=== PATIENT | female | born 1990 | race Caucasian/White ===

== ENCOUNTER 2019-11-22 11:33 | Inpatient (IN) | payer OTHER, SELFPAY ==
--- NOTE | ~2019-11-22 | XR_ITS ---
EXAMINATION: XR cholangiogram surg 1st inj DATE: 11/23/2019 12:10 INDICATION: Intraoperative evaluation during laparoscopic cholecystectomy TECHNIQUE: Multiple fluoroscopic images of the right upper quadrant were obtained during intraoperati ve cholangiography. The amount of fluoroscopy time used during this procedure was 0.7 minutes. COMPARISON: None. FINDINGS: Cannulation of the cystic duct demonstrates relation the common bile duct prominent to a li efraín obstructing stone at the ampulla where there is a meniscus sign and only a trace amount of contr ast extending into the duodenum along the periphery of the ovoid filling defect. No mucosal irregular ities or strictures along the common bile duct. A small amount of contrast was seen within the common bile duct which appears held in a couple for substance. There are couple surgical clips in the regio n of the proximal cystic duct. Contrast extends into the central intrahepatic biliary tree which also appears normal. IMPRESSION: 1. Dilation of the common bile duct proximal to a likely obstructing stone at the ampulla. Dr. Cortés i n the OR was notified of these findings at the time of imaging. Reviewed, dictated and finalized at location A. IMPRESSION: 1. Dilation of the common bile duct proximal to a likely obstructing stone at t he ampulla. Dr. Cortés in the OR was notified of these findings at the time of im aging.
--- NOTE | ~2019-11-22 | CT_ITS ---
EXAMINATION: CT abdomen pelvis w con DATE: 11/22/2019 13:28 INDICATION: Right upper quadrant abdominal pain TECHNIQUE: Computed tomography (CT) of the abdomen and pelvis was performed with 100 cc Omnipaque int ravenous contrast. Automated exposure control and iterative reconstruction technique were employed. E xam dose: 644.26 mGy-cm total exam DLP. COMPARISON: None. FINDINGS: The lung bases are clear. Normal heart size. No pericardial or pleural effusion. The gallbladder wall is mildly thickened, measuring 3 mm. The common bile duct measures up to 9 mm, above normal limits. Mild intrahepatic bile duct prominence . Recommend correlation with serum bilirubin levels. Consider MRCP. No hepatic, splenic, pancreatic, adrenal or renal space occupying mass lesion. 8 mm cyst of left kidney. Normal appendix. No bowel obstruction or bowel wall thickening or pneumatosis. No intraperitoneal f ree air. Small fat containing umbilical hernia. Included skeletal structures appear unremarkable. IMPRESSION: Mild gallbladder wall thickening Consider ultrasound of the gallbladder Mild bile duct dilatation; consider serum bilirubin, MRCP as appropriate Reviewed, dictated and finalized at Location [facility]. Reviewed, dictated and finalized at location A.
--- NOTE | ~2019-11-22 | XR_ITS ---
EXAMINATION: XR ERCP DATE: 11/24/2019 15:30 INDICATION: Choledocholithiasis. TECHNIQUE: 4 spot fluoroscopic images of the right upper quadrant were obtained during endoscopic ret rograde cholangiopancreatography (ERCP). Fluoroscopy exposure time was 204 seconds. COMPARISON: Intraoperative cholangiogram 11/23/2019 FINDINGS: The endoscope tip is in the second portion the duodenum. There is opacification of the comm on duct, which is dilated. There are surgical clips from cholecystectomy. IMPRESSION: 1. Dilated common duct. Please refer to the ERCP procedure note for additional details. Reviewed, dictated and finalized at location A.
--- NOTE | ~2019-11-22 | US_ITS ---
US right upper quadrant DATE: 11/22/2019 14:45 INDICATION: Right upper quadrant abdominal pain TECHNIQUE: Real-time imaging of the liver, pancreas, gallbladder areas COMPARISON: 11/22/2019 CT abdomen pelvis FINDINGS: Normal hepatic portal venous flow direction. No hepatic or pancreatic space-occupying mass lesion is detected. Normal hepatopedal portal venous fl ow direction. The gallbladder wall is thickened, measuring up to 4.5 mm. There are numerous filling defects with sh adowing within the gallbladder lumen as well as some probable sludge. The sonographic Angel's sign but the patient is reportedly a pain medication which renders this sign unreliable. Consider acute cholecystitis as well as chronic cholecystitis. Radionuclide hepatobiliar y scan may be helpful for more definitive diagnosis of acute cholecystitis if clinically desired. The common bile duct measures up to 8 mm, which is above normal range. Consider correlation with seru m bilirubin; MRCP may be of benefit as clinically appropriate. IMPRESSION: Cholelithiasis, gallbladder wall thickening. Acute cholecystitis is not excluded. Common bile duct dilatation, measuring up to 8 mm. Upon correlation with the 11/22/2019 CT abdomen pel vis examination, distal common bile duct obstruction secondary to choledocholithiasis is a strong con sideration. Reviewed, dictated and finalized at Location [facility]. Reviewed, dictated and finalized at location A. IMPRESSION: Cholelithiasis, gallbladder wall thickening. Acute cholecystitis is not excluded. Common bile duct dilatation, measuring up to 8 mm. Upon correlation with the CT abdomen pelvis examination, distal common bile duct obstruction seco ndary to choledocholithiasis is a strong consideration.
[2019-11-22 11:37] VITALS: BP 138/80; PULSE 122; RESP 20; TEMP 37; O2SAT 100
--- NOTE | 2019-11-22 11:38 | ED.GENADULT ---
HPI - General Adult General Chief complaint: Abdominal Pain <DON Renee - Last Filed: 11/22/19 17:08> Stated complaint: gallbladder issues <DON Renee - Last Filed: 11/22/19 17:08> Time Seen by Provider: 11/22/19 11:38 <DON Renee - Last Filed: 11/22/19 17:08> Source: patient <DON Renee - Last Filed: 11/22/19 17:08> Mode of arrival: ambulatory <DON Renee - Last Filed: 11/22/19 17:08> Limitations: no limitations <DON Renee - Last Filed: 11/22/19 17:08> History of Present Illness HPI narrative: 29-year-old female patient [facility] with complaints abdominal pain for the past 5 days. Patient states that at the end of September she started getting some gallbladder attacks however she was at that time. Patient states that she vaginally delivered her baby on 10/29 of this year. Patient states that the day after delivery she had an older gallbladder attack which they treated her with pain medicine and IV antibiotics. Patient states that she was discharged the next day and did not have any more attacks until recently about 5 days ago. Patient states when her gallbladder attacks first started in September she did have an ultrasound done which showed some sludge and gallstones. Patient states that the last 5 days she has been very nauseous. Last ate about 7 PM last night. Patient states she has been feeling very constipated. Patient states that she noticed some yellowing of her eyes and her primary doctor advised her to come to the ER for further evaluation. <DON Renee - Last Filed: 11/22/19 17:08> Related Data Home medications: Home Medications Medication Instructions Recorded Confirmed famotidine 40 mg PO DAILY 11/22/19 hydrocodone-acetaminophen 1 tablet PO DAILY 11/22/19 ondansetron 4 mg PO DAILY 11/22/19 <DON Renee - Last Filed: 11/22/19 17:08> Allergies/adverse reactions: Allergies Allergy/AdvReac Type Severity Reaction Status Date / Time No Known Allergies Allergy Verified 11/22/19 11:44 <DON Renee - Last Filed: 11/22/19 17:08> Review of Systems Review of Systems: Narrative: CONSTITUTIONAL: Denies fever, chills, or sweats. EYES: Denies visual changes, redness, or discharge. ENT: Denies rhinorrhea, congestion, sore throat, or otalgia. CARDIOVASCULAR: Positive right-sided chest pain, denies palpitations, or edema. RESPIRATORY: Denies cough or dyspnea. GASTROINTESTINAL positive abdominal pain, nausea, vomiting, denies diarrhea. Positive constipation GENITOURINARY: Denies dysuria or hematuria. SKIN: Denies rash or itching. MUSCULOSKELETAL: Denies back pain, joint pain, or myalgia. NEUROLOGIC: Denies headache, numbness, or weakness. PSYCHIATRIC: Denies anxiety or depression. <DON Renee - Last Filed: 11/22/19 17:08> PMFSH Family History Family History: Family History Grandparent Family history of hypercholesterolemia Hypertension Family history of throat cancer Mother Family history of blood dyscrasia Hypertension Father Hypertension Family history of type 2 diabetes mellitus <DON Renee - Last Filed: 11/22/19 17:08> Social History Social History: Social History Smoking status: Never smoker Alcohol intake: never Gender identity (if verbalized by the patient): Female <DON Renee - Last Filed: 11/22/19 17:08> Comments At the time of my signature I agree with nursing past medical history, surgical, social, and family history. There is no relevant family history pertinent to the presenting complaint. <DON Renee - Last Filed: 11/22/19 17:08> Exam Narrative: Exam Narrative: GENERAL: ill-appearing, well-nourished, and in no acute distress. HEAD: Normocephalic, atraumatic
--- NOTE | 2019-11-22 11:48 | ECG_ITS ---
Measurements Intervals [place] Rate: 96 P: 60 LA: 143 QRS: 66 QRSD: 86 T: 22 QT: 338 QTc: 427 Interpretive Statements SINUS RHYTHM WITH SINUS ARRHYTHMIA NONSPECIFIC ST & T-WAVE ABNORMALITY- INFERIOR LEADS BASELINE ARTIFACT- II, III, AVF BORDERLINE ECG Electronically Signed On 11-22-2019 13:42:31 CDT by Moose Fernandes D.O.
[2019-11-22] MEDS: SODIUM CHLORIDE 0.9% IV 1,000 ML 999 ML IV CONT ×2 (12:14→17:07)
[2019-11-22] MEDS: MORPHINE SULFATE 4 MG/ML INJ IV PUSH ×2 (12:15→17:08)
[2019-11-22] MEDS: ONDANSETRON INJ 4 MG/2 ML VIAL IV PUSH ×2 (12:15→17:08)
[2019-11-22 12:16] LABS: Basophils Percent Auto 0.3 % (0.2-1.2); Eosinophils Absolute Auto 0.1 K/mm3 (0-0.3); Eosinophils Percent Auto 2.1 % (0-4.4); Hematocrit 40.5 % (37.0-47.0); Hemoglobin 12.8 g/dL (12.0-15.0); Immature Granulocyte Absolute 0.02 K/mm3 (0.00-0.031); Immature Granulocyte Percent A 0.3 % (0-0.5); Lymphocytes Absolute Auto 1.53 K/mm3 (0.9-3.2); Lymphocytes Percent Auto 25.2 % (18.3-44.2); Mean Corpuscular HGB Conc 31.6 g/dl (32-36); Mean Corpuscular Hemoglobin 25.6 pg (26-34); Mean Platelet Volume 11.7 fl (7.4-10.4); Monocytes Absolute Auto 0.4 K/mm3 (0.1-0.6); Monocytes Percent Auto 6.6 % (2.6-8.5); Neutrophils Percent Auto 65.5 % (45.5-73.1); Platelet Count Result 325 k/mm3 (150-375); Red Cell Distribution Width 15.5 % (11.5-14.5); White Blood Count 6.1 K/mm3 (4.5-10.0)
[2019-11-22 12:19] LABS: Add Urine Microscopic? YES; Appearance Urine Clear (Clear); Bacteria Urine Trace /hpf; Bilirubin Urine 2+ (Negative); Blood Urine 2+ (Negative); Color Urine Amber (Yellow); Glucose Urine UA Negative (Negative); Ketones Urine Trace mg/dL (Negative); Leukocyte Esterase Ur 1+ LEU/UL (Negative); Mucus Urine Few /lpf; Nitrate Urine Negative (Negative); Protein Urine Negative (Negative); RBC Urine 21-50 /hpf (0-2); Specific Grav Ur 1.017 (1.001-1.035); Squamous Epithelial Cell Urine Occasional /hpf (Few); WBC Urine 16-20 /hpf
[2019-11-22 12:26] LABS: Lactic Acid Reflex 0.9 mmol/L (0.7-2.1)
[2019-11-22 12:27] LABS: Alanine Aminotransferase 374 U/L (4-35); Albumin Level 4.6 g/dL (3.5-5.1); Alkaline Phosphatase 329 U/L (38-126); Aspartate Amino Transferase 206 U/L (14-36); Bilirubin Direct 2.6 mg/dL (0-0.3); Bilirubin,Total 5.5 mg/dL (0.2-1.3); Blood Urea Nitrogen 8 mg/dL (7-17); Calcium 9.1 mg/dL (8.4-10.2); Carbon Dioxide 25 mmol/L (22-30); Chloride 104 mmol/L (98-107); Estimated CRCL calculation 76 ml/min; Estimated Glomerular Filt Rate > 60; Glucose 116 mg/dL (65-105); INR 0.9; Lipase 53 U/L (23-300); Potassium 3.7 mmol/L (3.4-5.0); Prothrombin Time 12.3 Seconds (11.1-14.7); Sodium 140 mmol/L (137-145)
[2019-11-22 12:28] LABS: Partial Thromboplastin Time 26.5 SECONDS (22.3-36.8)
[2019-11-22 13:50] VITALS: BP 102/90; PULSE 81; RESP 20; O2SAT 100
[2019-11-22 15:00] VITALS: PULSE 86; RESP 20; O2SAT 100
[2019-11-22 16:26] VITALS: BP 129/83; PULSE 63; RESP 20; O2SAT 100
--- NOTE | 2019-11-22 18:14 | PM.IMHP ---
H&P: HPI History of Present Illness Chief complaint: acute cholecystitis Narrative: Tish Enrique is a 29 year old female who had a baby in [place] on October 29. This was a vaginal delivery although her 1st baby was a . Prior to the end of her she had episodes of epigastric abdominal pain that were severe. She reports she had an ultrasound that showed gallstones. Particularly on October 18 she had severe epigastric abdominal pain from gallbladder attack. After her delivery, she had done pretty well but Wednesday night, 4 days ago, she started having severe epigastric abdominal pain again. This pain would come and was extremely severe but then would go away for several hours. She is eaten very little. She has had nausea with this and occasional vomiting. She has been avoiding fatty food. Her mom notice that she was somewhat yellow in appearance. She was advised to go to the emergency room today which she did. In the emergency room she was noted to have severe epigastric pain and tenderness. Her liver enzymes were elevated with a bilirubin of 5.5. Her lipase was normal. White blood cell count was normal. She 1st had a CT scan of the abdomen and pelvis which showed evidence of cholecystitis. A subsequent ultrasound was done which showed gallstones and a thickened gallbladder wall with evidence of acute cholecystitis. Common bile duct diameter was 8 mm. She has continued to require IV analgesics to control her pain. She is admitted now with acute cholecystitis with gallstones. Review of Systems Review of Systems: All systems reviewed & are unremarkable except as noted in HPI and below Constitutional: Constitutional: Denies headache(s) Cardiovascular: Cardiovascular: Denies chest pain and Denies dyspnea Respiratory: Respiratory: Denies cough and Denies dyspnea Gastrointestinal: Gastrointestinal: Reports as per HPI Integumentary/Breasts: Skin/Breast: Reports breast swelling (She is currently breast-feeding.) Neurologic: Denies confusion and Denies headache(s) [facility] Family History Family History (Updated 11/22/19 @ 18:37 by Eduard Cortés MD) Grandparent Family history of hypercholesterolemia Hypertension Family history of throat cancer Mother Family history of blood dyscrasia Hypertension Chronic cholecystitis due to cholelithiasis with choledocholithiasis Father Hypertension Family history of type 2 diabetes mellitus FH: gallbladder disease Sibling FH: gallbladder disease Social History Social History Smoking status: Never smoker Alcohol intake: never Gender identity (if verbalized by the patient): Female Meds Home Medications and Allergies Home Medications Medication Instructions Recorded Confirmed Type famotidine 40 mg PO DAILY 11/22/19 History hydrocodone-acetaminophen 1 tablet PO DAILY 11/22/19 History ondansetron 4 mg PO DAILY 11/22/19 History Allergies Allergy/AdvReac Type Severity Reaction Status Date / Time No Known Allergies Allergy Verified 11/22/19 11:44 Vital Signs Vital Signs - 24 hr 11/22/19 11:37 11/22/19 13:50 11/22/19 15:00 Temperature 37.0 C Pulse Rate 122 H 81 86 Respiratory Rate 20 20 20 Blood Pressure 138/80 102/90 Pulse Oximetry 100 100 100 11/22/19 16:26 Temperature Pulse Rate 63 Respiratory Rate 20 Blood Pressure 129/83 Pulse Oximetry 100 Exam Const: General: cooperative, comfortable, no acute distress, alert, awake, tired appearing and other (Some appearance of jaundice); No confusion Orientation/consciousness: No confusion HENMT: Head: normocephalic, atraumatic, no contusions and no scalp lesions Ears: external ears normal General nose exam: Normal external nose present Face and sinus: face symmetric and dry mucous membranes Mouth: Yes Normal oral and palatal mucosa present and Yes tongue normal Throat: posterior oropharynx normal Eyes: Conjunct
[2019-11-22 18:45] VITALS: BP 115/65; PULSE 72; RESP 16; TEMP 36.5; O2SAT 100
--- NOTE | 2019-11-22 18:45 | ADMGEN ---
This patient, Tish Enrique, was admitted to [address] [facility] Surg Room 300-01. Patient/family oriented to hospital policies and general routines including ID bracelet, bed and alarms, visiting hours, pain management, procedures, bathroom and other care routines, personal items, smoking policy, room service/diet, and visiting hours. Valuables list has been completed. Information on how to activate the Rapid Response Team has been discussed. Patient/Family are encouraged to report perceived risks to care and to ask questions if they do not understand what they are told or what they should do.
[2019-11-22 18:49] VITALS: BMI 33.6
[2019-11-22] MEDS: LACTATED RINGERS 1,000 ML 100 ML IV CONT (19:38)
[2019-11-22] MEDS: MORPHINE SULFATE 2 MG/ML INJ IV PUSH (20:32)
[2019-11-22] MEDS: IBUPROFEN IV 800 MG/200 ML 800 MG/200 ML BAG 400 MG IVPB (21:04)
[2019-11-22] MEDS: ENOXAPARIN 30 MG/0.3 ML SYRINGE SUB-Q (21:05)
[2019-11-22] MEDS: FAMOTIDINE 20 MG/2 ML VIAL IV PUSH (21:05)
[2019-11-23] VITALS (14 sets, daily range): BP systolic 114–144; BP diastolic 62–88; PULSE 58–96; RESP 12–20; TEMP 36.1–36.9; O2SAT 97–100
[2019-11-23] MEDS: MORPHINE SULFATE 2 MG/ML INJ IV PUSH ×5 (00:50→20:36)
[2019-11-23] MEDS: IBUPROFEN IV 800 MG/200 ML 800 MG/200 ML BAG 400 MG IVPB ×2 (01:58→16:22)
[2019-11-23 06:30] LABS: Basophils Percent Auto 0.2 % (0.2-1.2); Eosinophils Absolute Auto 0.2 K/mm3 (0-0.3); Eosinophils Percent Auto 3.9 % (0-4.4); Hematocrit 35.4 % (37.0-47.0); Hemoglobin 10.9 g/dL (12.0-15.0); Immature Granulocyte Absolute 0.01 K/mm3 (0.00-0.031); Immature Granulocyte Percent A 0.2 % (0-0.5); Lymphocytes Absolute Auto 2.03 K/mm3 (0.9-3.2); Lymphocytes Percent Auto 34.2 % (18.3-44.2); Mean Corpuscular HGB Conc 30.8 g/dl (32-36); Mean Corpuscular Hemoglobin 24.9 pg (26-34); Mean Platelet Volume 11.1 fl (7.4-10.4); Monocytes Absolute Auto 0.4 K/mm3 (0.1-0.6); Monocytes Percent Auto 6.7 % (2.6-8.5); Neutrophils Absolute Auto 3.3 K/mm3 (1.3-6.7); Neutrophils Percent Auto 54.8 % (45.5-73.1); Platelet Count Result 250 k/mm3 (150-375); Red Blood Count 4.37 M/mm3 (4.2-5.4); Red Cell Distribution Width 15.4 % (11.5-14.5); White Blood Count 5.9 K/mm3 (4.5-10.0)
[2019-11-23 06:55] LABS: Alanine Aminotransferase 250 U/L (4-35); Albumin Level 3.4 g/dL (3.5-5.1); Alkaline Phosphatase 244 U/L (38-126); Aspartate Amino Transferase 119 U/L (14-36); Bilirubin,Total 3.1 mg/dL (0.2-1.3); Blood Urea Nitrogen 5 mg/dL (7-17); Calcium 8.6 mg/dL (8.4-10.2); Carbon Dioxide 22 mmol/L (22-30); Chloride 108 mmol/L (98-107); Estimated CRCL calculation 76 ml/min; Estimated Glomerular Filt Rate > 60; Glucose 81 mg/dL (65-105); Lipase 30 U/L (23-300); Potassium 3.6 mmol/L (3.4-5.0); Sodium 139 mmol/L (137-145)
[2019-11-23] MEDS: LACTATED RINGERS 1,000 ML 100 ML IV CONT (08:14)
[2019-11-23] MEDS: CHLORHEXIDINE GLUCONATE 4% SOL 120 ML BTL 1 APPLIC TOPICAL (08:16)
[2019-11-23] MEDS: LACTATED RINGERS 1,000 ML 30 ML IV CONT ×2 (09:50→12:06)
--- NOTE | 2019-11-23 10:21 | WPDANESEPPF ---
Anes - Initial Pre Proc Eval Procedure: Operation Date: 11/23/19 10:30 Proposed Procedures p Laparoscopic Cholecystectomy With Intraoperative Cholangiograms - Eduard Cortés MD Date/Time: 11/23/19 10:21 Surgeon: Eduard Cortés MD Pre Op Diagnosis: acute cholecystitis Patient Data Age: 29 Gender: F Height: 5 ft Weight: 78.2 kg Last Vital Signs Temp 36.6 C 11/23/19 05:20 Pulse 61 11/23/19 05:20 Resp 12 11/23/19 05:20 BP 136/73 11/23/19 05:20 Pulse Ox 100 11/23/19 05:20 Allergies Allergy/AdvReac Type Severity Reaction Status Date / Time No Known Allergies Allergy Verified 11/22/19 11:44 Home Medications Medication Instructions Recorded Confirmed Type famotidine 40 mg PO DAILY 11/22/19 11/22/19 History hydrocodone-acetaminophen 1 tablet PO DAILY 11/22/19 11/22/19 History ondansetron 4 mg PO DAILY 11/22/19 11/22/19 History Laboratory Tests 11/22/19 11/22/19 11/22/19 12:07 12:07 12:07 WBC 6.1 K/mm3 K/mm3 (4.5-10.0) RBC 5.00 M/mm3 M/mm3 (4.2-5.4) Hgb 12.8 g/dL g/dL (12.0-15.0) Hct 40.5 % % (37.0-47.0) MCV 81.0 fl fl (80-100) MCH 25.6 pg L pg (26-34) MCHC 31.6 g/dl L g/dl (32-36) RDW 15.5 % H % (11.5-14.5) Plt Count 325 k/mm3 k/mm3 (150-375) MPV 11.7 fl H fl (7.4-10.4) Immature Gran % (Auto) 0.3 % % (0-0.5) Neut % (Auto) 65.5 % % (45.5-73.1) Lymph % (Auto) 25.2 % % (18.3-44.2) [place] % (Auto) 6.6 % % (2.6-8.5) Eos % (Auto) 2.1 % % (0-4.4) Baso % (Auto) 0.3 % % (0.2-1.2) Lymph # (Auto) 1.53 K/mm3 K/mm3 (0.9-3.2) [place] # (Auto) 0.4 K/mm3 K/mm3 (0.1-0.6) Eos # (Auto) 0.1 K/mm3 K/mm3 (0-0.3) Baso # (Auto) 0.0 K/mm3 K/mm3 (0.0-0.1) Abs Immat Gran (auto) 0.02 K/mm3 K/mm3 (0.00-0.031) Absolute Neuts (auto) 4.0 K/mm3 K/mm3 (1.3-6.7) Absolute Nucleated RBC 0.0 K/mm3 K/mm3 (0.0-0.012) Nucleated RBC % 0.0 % % (0.0-0.2) PT 12.3 Seconds Seconds (11.1-14.7) INR 0.9 APTT 26.5 SECONDS SECONDS (22.3-36.8) Sodium 140 mmol/L mmol/L (137-145) Potassium 3.7 mmol/L mmol/L (3.4-5.0) Chloride 104 mmol/L mmol/L (98-107) Carbon Dioxide 25 mmol/L mmol/L (22-30) BUN 8 mg/dL mg/dL (7-17) Creatinine 0.90 mg/dL mg/dL (0.7-1.0) Estim Creat Clear Calc 76 ml/min ml/min Estimated GFR > 60 (59 - ) Glucose 116 mg/dL H mg/dL (65-105) Lactic Acid Calcium 9.1 mg/dL mg/dL (8.4-10.2) Total Bilirubin 5.5 mg/dL H mg/dL (0.2-1.3) Direct Bilirubin 2.6 mg/dL H mg/dL (0-0.3) AST 206 U/L H U/L (14-36) ALT 374 U/L H U/L (4-35) Alkaline Phosphatase 329 U/L H U/L (38-126) Total Protein 8.0 g/dL g/dL (6.3-8.2) Albumin 4.6 g/dL g/dL (3.5-5.1) Lipase 53 U/L U/L (23-300) Urine Color Urine Appearance Urine pH Ur Specific [place] Urine Protein Urine Glucose (UA) Urine Ketones Ur Blood (Man) Urine Nitrate Urine Bilirubin Urine Urobilinogen Leukocyte Esterase Rfl Urine RBC Urine WBC Ur Squamous Epith Cells Urine Bacteria Urine Mucus Blood Type Antibody Screen Antibody Identification Antigen Identification MARCK, IgG Interpret MARCK, Poly Interpret MARCK, Complement Interp Enhanced Crossmatch 11/22/19 11/22/19 11/23/19 12:07 12:07 05:58 WBC 5.9 K/mm3 K/mm3 (4.5-10.0) RBC 4.37 M/mm3
[2019-11-23] MEDS: BUPIVACAINE/EPINEPHRINE 0.5% 30 ML VIAL INFILTRATE (11:21)
[2019-11-23] MEDS: ONDANSETRON INJ 4 MG/2 ML VIAL IV PUSH ×3 (12:30→20:35)
--- NOTE | 2019-11-23 13:34 | PC.NURSE ---
Patient to OR at 0920.
--- NOTE | 2019-11-23 13:36 | PC.NURSE ---
Patient returned to 3 med/surg floor from PACU at 1335.
[2019-11-23] MEDS: FAMOTIDINE 20 MG/2 ML VIAL IV PUSH ×2 (14:15→20:35)
[2019-11-23] MEDS: ENOXAPARIN 30 MG/0.3 ML SYRINGE SUB-Q ×2 (14:16→20:36)
--- NOTE | 2019-11-23 16:16 | WPDGICN ---
Assessment and Plan Assessment and plan (1) Choledocholithiasis with acute cholecystitis: Code(s): K80.42 - Calculus of bile duct with acute cholecystitis without obstruction Status: Acute Assessment and Plan: GB removed today but noted stone in bile duct will proceed with ERCP tomorrow, discussed with patient and mother will give indomethacin supp to prevent post ercp pancreatitis (2) Calculus of gallbladder with acute and chronic cholecystitis with obstruction: Code(s): K80.13 - Calculus of gallbladder with acute and chronic cholecystitis with obstruction Status: Acute Assessment and Plan: she is on iv zosyn (3) Elevated liver enzymes: Code(s): R74.8 - Abnormal levels of other serum enzymes Status: Acute Assessment and Plan: monitor liver enzymes, continue with medical care (4) Lactating mother: Code(s): Z39.1 - Encounter for care and examination of lactating mother Status: Chronic GI Consult Note Consult date/time: 11/23/19 16:16 Reason for consult: jaundice, choledocholithiasis HPI: Tish Enrique is a 29 year old female who is 3 weeks after vaginal delivery. She started having ruq pain with nausea during third trimester treated medically then after delivery had severe epigastric abdominal pain again with nausea and some vomiting, lack of appetite, also noted dark urine and yellow sclerae. Finally she came to ER and found to have elevated liver enzymes with a bilirubin of 5.5. Her lipase was normal. White blood cell count was normal. CT scan of the abdomen and pelvis which showed evidence of cholecystitis. Then ultrasound showed gallstones and a thickened gallbladder wall with evidence of acute cholecystitis. Common bile duct diameter was [address] Cortés took her for lap armand, IOC showed stone in bile duct. She is recovering from surgery. Mother also had GB surgery with apparently ERCP Review of Systems Constitutional: Constitutional: Reports lethargy Eyes: Eyes: Denies blurry vision ENT: Reports Normal hearing present, Denies headache(s) and Denies neck pain Cardiovascular: Cardiovascular: Denies chest pain and Denies dyspnea Respiratory: Respiratory: Denies dyspnea Gastrointestinal: Gastrointestinal: Reports no additional gastrointestinal complaints Genitourinary: Genitourinary: Denies dysuria Comments: recent vaginal delivery Musculoskeletal: Musculoskeletal: Denies neck pain Integumentary/Breasts: Skin/Breast: Denies dry skin Neurologic: Reports Normal hearing present, Denies headache(s) and Denies weakness Psychiatric: Psychiatric: Denies anxiety Endocrine: Endocrine: Denies change in body appearance Hematologic/Lymphatic: Hematologic/Lymphatic: Denies easy bleeding Allergic/Immunologic: Allergic/Immunologic: Denies urticaria PMFSH Past Medical History Medical History (Updated 11/23/19 @ 16:23 by Neftaly Wong MD) Choledocholithiasis with acute cholecystitis Elevated liver enzymes Obesity Surgical History Surgical History (Updated 11/23/19 @ 10:22 by Cachorro Villegas MD) History of section Social History Social History Smoking status: Never smoker Alcohol intake: never Substance use: never Gender identity (if verbalized by the patient): Female Spiritual care concerns: No Meds Home Medications and Allergies Home Medications Medication Instructions Recorded Confirmed Type famotidine 40 mg PO DAILY 11/22/19 11/22/19 History hydrocodone-acetaminophen 1 tablet PO DAILY 11/22/19 11/22/19 History ondansetron 4 mg PO DAILY 11/22/19 11/22/19 History Allergies Allergy/AdvReac Type Severity Reaction Status Date / Time No Known Allergies Allergy Verified 11/22/19 11:44 Vital Signs Vital Signs - 24 hr 11/22/19 16:26 11/22/19 18:45 11/23/19 05:20 Temperature 97.7 F 97.9 F Pulse Rate 63 72 61 Respirato
[2019-11-24] VITALS (10 sets, daily range): BP systolic 108–145; BP diastolic 60–83; PULSE 53–88; RESP 14–20; TEMP 36.6–36.7; O2SAT 95–100
[2019-11-24] MEDS: MORPHINE SULFATE 2 MG/ML INJ IV PUSH ×2 (02:00→08:34)
[2019-11-24] MEDS: ONDANSETRON INJ 4 MG/2 ML VIAL IV PUSH ×3 (05:15→17:17)
[2019-11-24] MEDS: MORPHINE SULFATE 4 MG/ML INJ IV PUSH ×3 (05:15→17:50)
[2019-11-24 06:08] LABS: Basophils Percent Auto 0.3 % (0.2-1.2); Eosinophils Percent Auto 0.4 % (0-4.4); Hemoglobin 10.9 g/dL (12.0-15.0); Immature Granulocyte Absolute 0.05 K/mm3 (0.00-0.031); Immature Granulocyte Percent A 0.6 % (0-0.5); Lymphocytes Absolute Auto 2.11 K/mm3 (0.9-3.2); Mean Corpuscular HGB Conc 31.1 g/dl (32-36); Mean Corpuscular Hemoglobin 25.1 pg (26-34); Mean Corpuscular Volume 80.6 fl (80-100); Mean Platelet Volume 11.5 fl (7.4-10.4); Monocytes Absolute Auto 0.6 K/mm3 (0.1-0.6); Monocytes Percent Auto 7.4 % (2.6-8.5); Neutrophils Percent Auto 64.3 % (45.5-73.1); Platelet Count Result 280 k/mm3 (150-375); Red Blood Count 4.34 M/mm3 (4.2-5.4); Red Cell Distribution Width 15.9 % (11.5-14.5); White Blood Count 7.8 K/mm3 (4.5-10.0)
[2019-11-24 06:18] LABS: Alanine Aminotransferase 247 U/L (4-35); Albumin Level 3.5 g/dL (3.5-5.1); Alkaline Phosphatase 264 U/L (38-126); Aspartate Amino Transferase 179 U/L (14-36); Blood Urea Nitrogen 6 mg/dL (7-17); Calcium 8.5 mg/dL (8.4-10.2); Carbon Dioxide 25 mmol/L (22-30); Chloride 106 mmol/L (98-107); Estimated CRCL calculation 69 ml/min; Estimated Glomerular Filt Rate > 60; Glucose 87 mg/dL (65-105); Potassium 3.6 mmol/L (3.4-5.0); Sodium 139 mmol/L (137-145)
[2019-11-24] MEDS: FAMOTIDINE 20 MG/2 ML VIAL IV PUSH ×2 (08:11→22:39)
[2019-11-24] MEDS: ENOXAPARIN 30 MG/0.3 ML SYRINGE SUB-Q (08:11)
--- NOTE | 2019-11-24 08:57 | PM.PNGS ---
Progress Note: A&P Assessment and Plan (1) Choledocholithiasis with acute cholecystitis: Code(s): K80.42 - Calculus of bile duct with acute cholecystitis without obstruction Status: Acute Assessment and Plan: doing well after laparoscopic cholecystectomy yesterday. Patient still has signs of jaundice. Appreciate Dr. Quijano consultation. Plans are for ERCP this afternoon. If all goes well, possibly home tomorrow. (2) Lactating mother: Code(s): Z39.1 - Encounter for care and examination of lactating mother Status: Chronic Subjective Subjective Date/Time Seen: 11/24/19 08:57 Post Op day: 1 Patient reports: no new complaints, feels better, pain is less and no bowel movement Exam Const: General: comfortable, no acute distress and other ( still has signs of icterus); No confusion Orientation/consciousness: patient oriented x3 and No confusion GI: Inspection: non-distended and incision ( all incisions healing well) GI Palp: Yes Soft to palpation, Yes Tenderness to palpation present (GI), No Guarding due to palpation present (GI), No Hernia present, No Palpable mass present and No Rebound tenderness present Neuro: General: patient oriented x3, no focal motor deficits and No confusion Extrem: General: no calf tenderness and no edema Psych: Affect: normal affect Insight: Good insight present (Psych) Judgement: Good judgement present (Psych) Objective Data Vital Signs Vital Signs: Vital Signs - 24 hr 11/23/19 09:26 11/23/19 12:06 11/23/19 12:21 Temperature 36.9 C 36.2 C L Pulse Rate 96 86 89 Respiratory Rate 16 20 20 Blood Pressure 114/63 126/88 133/71 Pulse Oximetry 99 100 99 11/23/19 12:35 11/23/19 12:49 11/23/19 13:10 Temperature Pulse Rate 75 72 85 Respiratory Rate 14 15 16 Blood Pressure 132/74 132/75 136/84 Pulse Oximetry 98 97 99 11/23/19 13:49 11/23/19 14:05 11/23/19 14:35 Temperature 36.1 C L 36.4 C 36.7 C Pulse Rate 77 65 73 Respiratory Rate 17 16 16 Blood Pressure 120/62 126/70 130/74 Pulse Oximetry 98 98 98 11/23/19 16:24 11/23/19 18:00 11/23/19 21:00 Temperature 36.5 C 36.3 C L 36.6 C Pulse Rate 88 58 L 77 Respiratory Rate 16 16 16 Blood Pressure 144/88 H 119/62 143/79 H Pulse Oximetry 98 98 100 11/24/19 02:00 11/24/19 06:00 Temperature 36.6 C 36.6 C Pulse Rate 72 73 Respiratory Rate 14 16 Blood Pressure 138/69 145/75 H Pulse Oximetry 99 100 Intake/Output Intake/Output: Intake & Output 11/21/19 11/22/19 11/23/19 11/24/19 23:59 23:59 23:59 23:59 Intake Total 2300 2690 350 Output Total 1900 Balance 2300 790 350 Meds/Results Medications: Active Medications Generic Name Dose Route Start Last Admin Trade Name Freq PRN Reason Stop Dose Admin Acetaminophen 500 mg 11/22/19 18:10 Tylenol Tablet PO Q6H PRN Mild Pain (1-3) or Fever Hydrocodone Bitart/Acetaminophen 1 tab 11/23/19 19:31 [place] 5-325 Mg PO Q4H PRN Pain Rated 4-6 Hydrocodone Bitart/Acetaminophen 1 tab 11/23/19 19:31 [place] 10-325 Mg PO Q4H PRN Pain Rated 7-10 Enoxaparin Sodium 30 mg 11/22/19 21:00 11/24/19 08:11 Lovenox SUB-Q 30 mg Q12HR ELIJAH Administration Famotidine 20 mg 11/22/19 21:00 11/24/19 08:11 Pepcid Iv IV PUSH 20 mg Q12HR ELIJAH Administration Piperacillin/Tazobactam/Dextrose 3.375 gm in 50 mls @ 100 mls/hr 11/22/19 23:00 11/24/19 05:10 Zosyn 3.375 Gm/D5w 50ml Pm IVPB 100 mls/hr Q6H ELIJAH Administration Lactated Ringer's 1,000 mls @ 80 mls/hr 11/23/19 19:31 Lr - Lactated Ringers Iv IV CONT .[id number] ELIJAH Morphine Sulfate 2 mg 11/22/19 18:10 11/24/19 08:34 Morphine Sulfate Inj IV PUSH 2 mg Q2H PRN Administration Pain Rated 4-6 Morphine Sulfate 4 mg 11/22/19 18:10 11/24/19 05:15 Morphine Sulfate Inj IV PUSH 4 mg Q2H PRN Administration Pain Rated 7-10 Naloxone HCl 0.1 mg 11/22/19 18:10 Narcan IV PUSH Q2M PRN Opi
[2019-11-24] MEDS: LACTATED RINGERS 1,000 ML 80 ML IV CONT ×2 (09:49→13:43)
--- NOTE | 2019-11-24 09:56 | P.PNAN_ITS ---
Anes - Prog Note Post-Op Date/Time: 11/24/19 09:56 Cardiovascular status: normal Respiratory status: normal Airway patency: baseline Mental status: baseline Post-Op hydration status: normal Vital Signs: Last Vital Signs Temp 97.9 F 11/24/19 06:00 Pulse 73 11/24/19 06:00 Resp 16 11/24/19 06:00 BP 145/75 H 11/24/19 06:00 Pulse Ox 100 11/24/19 06:00 I/O: Intake & Output 11/23/19 11/24/19 11/24/19 23:59 07:59 15:59 Intake Total 1040 350 Output Total 1900 Balance -860 350 Laboratory Tests 11/24/19 05:40 11/24/19 05:40 11/24/19 11/24/19 05:40 05:40 WBC 7.8 RBC 4.34 Hgb 10.9 L Hct 35.0 L MCV 80.6 MCH 25.1 L MCHC 31.1 L RDW 15.9 H Plt Count 280 MPV 11.5 H Immature Gran % (Auto) 0.6 H Neut % (Auto) 64.3 Lymph % (Auto) 27.0 [place] % (Auto) 7.4 Eos % (Auto) 0.4 Baso % (Auto) 0.3 Lymph # (Auto) 2.11 [place] # (Auto) 0.6 Eos # (Auto) 0.0 Baso # (Auto) 0.0 Abs Immat Gran (auto) 0.05 H Absolute Neuts (auto) 5.0 Absolute Nucleated RBC 0.0 Nucleated RBC % 0.0 Sodium 139 Potassium 3.6 Chloride 106 Carbon Dioxide 25 BUN 6 L Creatinine 1.00 Estim Creat Clear Calc 69 Estimated GFR > 60 Glucose 87 Calcium 8.5 Total Bilirubin 4.0 H AST 179 H ALT 247 H Alkaline Phosphatase 264 H Total Protein 6.0 L Albumin 3.5 Microbiology 11/22/19 12:07 Urine Clean Catch Urine Culture - Final Post-procedural complaints: none Patient Feedback: Patient satisfied with anesthetic care.
--- NOTE | 2019-11-24 13:24 | PC.NURSE ---
To GI Lab per erik, IV #20 left AC.
--- NOTE | 2019-11-24 13:39 | SUR.PREOP ---
pt notified of delay in procedure start time. pt verbalizes understanding.
--- NOTE | 2019-11-24 13:58 | PM.DS ---
DS: Admitting Diagnosis Admitting Diagnosis Admitting Diagnosis: Calculus of gallbladder with acute and chronic cholecystitis with obstruction DS: Discharge Diagnosis Discharge Diagnosis (1) Choledocholithiasis with acute cholecystitis: Code(s): K80.42 - Calculus of bile duct with acute cholecystitis without obstruction Status: Acute (2) Acute pancreatitis after endoscopic retrograde cholangiopancreatography (ERCP): Code(s): K91.89 - Other postprocedural complications and disorders of digestive system; K85.90 - Acute pancreatitis without necrosis or infection, unspecified Status: Acute (3) Lactating mother: Code(s): Z39.1 - Encounter for care and examination of lactating mother Status: Chronic DS: Summary Time Spent with Patient Time attestation: Total time spent providing and/or coordinating discharge services: The patient is a 29-year-old woman who had a baby by vaginal delivery October 29. She was having some pain from gallbladder disease prior to delivery. She did well but then for about the last 4 days before coming to the emergency room on November 21, she had unrelenting epigastric abdominal pain. In the emergency room she was noted to be slightly jaundiced. Her liver enzymes were elevated and her bilirubin was 5.5. An ultrasound showed gallstones with evidence of acute cholecystitis. She was admitted and started on IV antibiotics as well as analgesics. She did feel better on November 22 and her liver enzymes were somewhat improved. She underwent laparoscopic cholecystectomy by Dr. baumann. This went well. She had a a cholangiogram and this showed an obstructing distal common bile duct stone. She was seen by Dr. Quijano. She underwent ERCP on November 23. this showed no common bile duct stones but biliary papillary stenosis. Sphincterotomy was performed. Pancreatic duct was not cannulated. On November 24 the patient had nausea and worse epigastric and right upper quadrant pain. Her serum amylase was elevated at 13,000 thousand. She was diagnosis with post ERCP pancreatitis. She was kept on clear liquids on 11/24 and was better on November 25 but still a lot of tenderness and nausea. On the day of discharge November 27, 2019, her amylase was down to 457. her liver enzymes were steadily improving as well. She was much more comfortable and able to be discharged on 11/27/2019 in good condition. pathology on the gallbladder showed chronic cholecystitis with cholelithiasis. Exam Const: General: comfortable and no acute distress; No confusion Orientation/consciousness: patient oriented x3 and No confusion GI: Inspection: non-distended and incision ( All incisions healing well) GI Palp: Yes Soft to palpation, Yes Tenderness to palpation present (GI) ( minimal incisional or epigastric tenderness), No Guarding due to palpation present (GI) and No Rebound tenderness present Auscultation: normal bowel sounds Neuro: General: patient oriented x3, no focal motor deficits and No confusion Extrem: General: no calf tenderness and no edema Psych: Affect: normal affect Insight: Good insight present (Psych) Judgement: Good judgement present (Psych) DS: Data Data Completed and Pending Pending studies at discharge: Pending at discharge 11/23/19 11:23 Surgical [PTH] Routine Labs on day of discharge: Labs from last 24 hours 11/24/19 11/24/19 05:40 05:40 WBC 7.8 RBC 4.34 Hgb 10.9 L Hct 35.0 L MCV 80.6 MCH 25.1 L MCHC 31.1 L RDW 15.9 H Plt Count 280 MPV 11.5 H Immature Gran % (Auto) 0.6 H Neut % (Auto) 64.3 Lymph % (Auto) 27.0 [place] % (Auto) 7.4 Eos % (Auto) 0.4 Baso % (Auto) 0.3 Lymph # (Auto) 2.11 [place] # (Auto) 0.6 Eos # (Auto) 0.0 Baso # (Auto) 0.0 Abs Immat Gran (auto) 0.05 H Absolute Neuts (auto) 5.0 Absolute Nucleated RBC 0.0 Nucleated RBC % 0.0 Sodium 139 Potassium 3.6 Chloride 106 Carbon Dioxide 25 BUN 6 L Creatin
[2019-11-24] MEDS: INDOMETHACIN 50 MG SUPP.RECT RECTAL (14:56)
--- NOTE | 2019-11-24 15:52 | SUR.PHASEII ---
1529 ARRIVED TO RECOVERY PER STRETCHER. ORAL AIRWAY IN PLACE. O2 10 L PER MASK. HOB ELEVATED SMALL AMT. SKIN- W/D, PINK. GOOD CAP REFILL. ABD- SOFT/ROUND. TROCHAR SITES FROM LAP NANDA- D/I. VSS. 1539 PT AROUSING. ORAL AIRWAY D/C'D. RESP- UNLABORED. LUNGS- CLEAR. ABD- SOFT/ROUND. VSS. 1549 VSS. RESP- UNLABORED. SLEEPING.
--- NOTE | 2019-11-24 16:29 | SUR.PHASEII ---
1600 RESTING QUIETLY, VSS. RESP- UNLABORED. ABD- SOFT/ROUND.1615 UNCHANGED. 1628 REPORT CALLED TO FLOOR. DR CAMERON REPORTS NO NEED TO PUMP & DUMP BREAST MILK. JENELLE, 3RD FLOOR RN NOTIFIED.
[2019-11-25] MEDS: ONDANSETRON INJ 4 MG/2 ML VIAL IV PUSH ×3 (01:40→12:17)
[2019-11-25] MEDS: LACTATED RINGERS 1,000 ML 80 ML IV CONT ×2 (05:56→21:10)
[2019-11-25 06:50] VITALS: BP 137/74; PULSE 66; RESP 18; TEMP 36.9; O2SAT 98
--- NOTE | 2019-11-25 08:11 | WPDGIPROGNO ---
Progress Note: A&P Additional Plan Patient is seen covering for Dr. Quijano today. Patient alert this morning. Tolerating liquids. She does note some right upper quadrant discomfort that persists. Not very hungry today Patient is alert. Mild scleral icterus noted. Lungs are clear. Heart without murmur. Abdomen bowel sounds are present soft she reports tenderness in the right upper quadrant. ERCP findings noted. Clear sweep of the common bile duct. No stones recovered. Question of ampullary stenosis. Patient had a sphincterotomy. Impression 1. Status post lap choly. 2. Status post ERCP and sphincterotomy. 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 Now status post sphincterotomy. Plan is to advance diet as tolerated to a low-fat diet. Increase activity. Discharge when tolerating diet and minimal pain. Continue to monitor LFTs until resolved. Subjective Date/time seen: 11/25/19 08:12 Objective Data Vital Signs Vital Signs: Vital Signs - 24 hr 11/24/19 15:29 11/24/19 15:39 11/24/19 15:49 Temperature 97.8 F Pulse Rate 88 82 69 Respiratory Rate 20 20 18 Blood Pressure 111/69 109/71 124/83 Pulse Oximetry 99 99 100 11/24/19 15:59 11/24/19 16:09 11/24/19 16:19 Temperature Pulse Rate 53 L 64 62 Respiratory Rate 18 18 14 Blood Pressure 117/70 117/71 117/71 Pulse Oximetry 100 98 98 11/24/19 16:29 11/24/19 22:30 11/25/19 06:50 Temperature 98.1 F 98.5 F Pulse Rate 59 L 63 66 Respiratory Rate 14 18 18 Blood Pressure 118/80 108/60 137/74 Pulse Oximetry 98 95 98 Intake/Output Intake/Output: Intake & Output 11/22/19 11/23/19 11/24/19 11/25/19 23:59 23:59 23:59 23:59 Intake Total 2300 2690 2050 490 Output Total 1900 1000 400 Balance 2300 790 1050 90 Meds/Results Medications: Active Medications Generic Name Dose Route Start Last Admin Trade Name Freq PRN Reason Stop Dose Admin Acetaminophen 500 mg 11/22/19 18:10 Tylenol Tablet PO Q6H PRN Mild Pain (1-3) or Fever Hydrocodone Bitart/Acetaminophen 1 tab 11/23/19 19:31 [place] 5-325 Mg PO Q4H PRN Pain Rated 4-6 Hydrocodone Bitart/Acetaminophen 1 tab 11/23/19 19:31 11/25/19 05:56 [place] 10-325 Mg PO 1 tab Q4H PRN Administration Pain Rated 7-10 Famotidine 20 mg 11/22/19 21:00 11/24/19 22:39 Pepcid Iv IV PUSH 20 mg Q12HR ELIJAH Administration Piperacillin/Tazobactam/Dextrose 3.375 gm in 50 mls @ 100 mls/hr 11/22/19 23:00 11/25/19 06:26 Zosyn 3.375 Gm/D5w 50ml Pm IVPB Infused Q6H ELIJAH Infusion Lactated Ringer's 1,000 mls @ 80 mls/hr 11/23/19 19:31 11/25/19 05:56 Lr - Lactated Ringers Iv IV CONT 80 mls/hr .[id number] ELIJAH Administration Morphine Sulfate 2 mg 11/22/19 18:10 11/24/19 08:34 Morphine Sulfate Inj IV PUSH 2 mg Q2H PRN Administration Pain Rated 4-6 Morphine Sulfate 4 mg 11/22/19 18:10 11/24/19 17:50 Morphine Sulfate Inj IV PUSH 4 mg Q2H PRN Administration Pain Rated 7-10 Naloxone HCl 0.1 mg 11/22/19 18:10 Narcan IV PUSH Q2M PRN Opiate Reversal Ondansetron HCl 4 mg 11/22/19 16:48 11/25/19 05:55 Zofran Inj IV PUSH 4 mg Q4H PRN Administration Nausea Radiology Results: ITS Impressions Abdomen/Pelvis CT 11/22/19 13:31 IMPRESSION: Mild gallbladder wall thickening Consider ultrasound of the gallbladder Mild bile duct dilatation; consider serum bilirubin, MRCP as appropriate Upper Quadrant Ultrasound 11/22/19 14:45 IMPRESSION: Cholelithiasis, gallbladder wall thickening. Acute cholecystitis is not excluded. Common bile duct dilatation, measuring up to 8 mm. Upon correlation with the 11/22/2019 CT abdomen pelvis examination, distal common bile duct obstruction secondary to choledocholithiasis is a strong consideration. Cholangiogram,Operative 11/23/19 12:14 IMPRESSION: 1. Dilation of the common bile duct proximal to a likely obstructing stone at the ampulla. Dr. Cortés in t
[2019-11-25] MEDS: MORPHINE SULFATE 4 MG/ML INJ IV PUSH ×2 (08:51→21:11)
[2019-11-25] MEDS: FAMOTIDINE 20 MG/2 ML VIAL IV PUSH ×2 (08:53→21:11)
--- NOTE | 2019-11-25 08:57 | PM.PNGS ---
Progress Note: A&P Assessment and Plan (1) Choledocholithiasis with acute cholecystitis: Code(s): K80.42 - Calculus of bile duct with acute cholecystitis without obstruction Status: Acute Assessment and Plan: patient having more pain and nausea this morning. ERCP results noted. No stone found but patient did have papillary stenosis and had a sphincterotomy. Suspect she may have some pancreatitis. Will continue clear liquids and check her labs this morning. Dr. Quijano to see. Probably will need to hold up discharge today. Subjective Subjective Date/Time Seen: 11/25/19 08:57 Patient reports: still having pain ( Having more epigastric pain this morning than yesterday) and nausea Review of Systems Review of Systems: All systems reviewed & are unremarkable except as noted in HPI and below Constitutional: Constitutional: Denies headache(s) Cardiovascular: Cardiovascular: Denies chest pain and Denies dyspnea Respiratory: Respiratory: Denies cough and Denies dyspnea Gastrointestinal: Gastrointestinal: Reports as per HPI Neurologic: Denies confusion and Denies headache(s) Exam Const: General: comfortable and no acute distress; No confusion Orientation/consciousness: patient oriented x3 and No confusion GI: Inspection: incision ( healing well) GI Palp: Yes Soft to palpation, Yes Tenderness to palpation present (GI) ( epigastric), No Guarding due to palpation present (GI) and No Rebound tenderness present Auscultation: Hypoactive bowel sounds present Neuro: General: patient oriented x3, no focal motor deficits and No confusion Extrem: General: no calf tenderness and no edema Psych: Affect: normal affect Insight: Good insight present (Psych) Judgement: Good judgement present (Psych) Objective Data Vital Signs Vital Signs: Vital Signs - 24 hr 11/24/19 15:29 11/24/19 15:39 11/24/19 15:49 Temperature 36.6 C Pulse Rate 88 82 69 Respiratory Rate 20 20 18 Blood Pressure 111/69 109/71 124/83 Pulse Oximetry 99 99 100 11/24/19 15:59 11/24/19 16:09 11/24/19 16:19 Temperature Pulse Rate 53 L 64 62 Respiratory Rate 18 18 14 Blood Pressure 117/70 117/71 117/71 Pulse Oximetry 100 98 98 11/24/19 16:29 11/24/19 22:30 11/25/19 06:50 Temperature 36.7 C 36.9 C Pulse Rate 59 L 63 66 Respiratory Rate 14 18 18 Blood Pressure 118/80 108/60 137/74 Pulse Oximetry 98 95 98 Intake/Output Intake/Output: Intake & Output 11/22/19 11/23/19 11/24/19 11/25/19 23:59 23:59 23:59 23:59 Intake Total 2300 2690 2050 490 Output Total 1900 1000 400 Balance 2300 790 1050 90 Meds/Results Medications: Active Medications Generic Name Dose Route Start Last Admin Trade Name Freq PRN Reason Stop Dose Admin Acetaminophen 500 mg 11/22/19 18:10 Tylenol Tablet PO Q6H PRN Mild Pain (1-3) or Fever Hydrocodone Bitart/Acetaminophen 1 tab 11/23/19 19:31 [place] 5-325 Mg PO Q4H PRN Pain Rated 4-6 Hydrocodone Bitart/Acetaminophen 1 tab 11/23/19 19:31 11/25/19 05:56 [place] 10-325 Mg PO 1 tab Q4H PRN Administration Pain Rated 7-10 Famotidine 20 mg 11/22/19 21:00 11/25/19 08:53 Pepcid Iv IV PUSH 20 mg Q12HR ELIJAH Administration Piperacillin/Tazobactam/Dextrose 3.375 gm in 50 mls @ 100 mls/hr 11/22/19 23:00 11/25/19 06:26 Zosyn 3.375 Gm/D5w 50ml Pm IVPB Infused Q6H ELIJAH Infusion Lactated Ringer's 1,000 mls @ 80 mls/hr 11/23/19 19:31 11/25/19 05:56 Lr - Lactated Ringers Iv IV CONT 80 mls/hr .[id number] ELIJAH Administration Morphine Sulfate 2 mg 11/22/19 18:10 11/24/19 08:34 Morphine Sulfate Inj IV PUSH 2 mg Q2H PRN Administration Pain Rated 4-6 Morphine Sulfate 4 mg 11/22/19 18:10 11/25/19 08:51 Morphine Sulfate Inj IV PUSH 4 mg Q2H PRN Administration Pain Rated 7-10 Naloxone HCl 0.1 mg 11/22/19 18:10 Narcan IV PUSH Q2M PRN Opiate Reversal Ondansetron HCl 4 mg 11/22/19 16:48
[2019-11-25 09:21] LABS: Hematocrit 34.1 % (37.0-47.0); Hemoglobin 10.8 g/dL (12.0-15.0); Mean Corpuscular HGB Conc 31.7 g/dl (32-36); Mean Corpuscular Hemoglobin 25.9 pg (26-34); Mean Corpuscular Volume 81.8 fl (80-100); Platelet Count Result 248 k/mm3 (150-375); Red Blood Count 4.17 M/mm3 (4.2-5.4); Red Cell Distribution Width 16.2 % (11.5-14.5); White Blood Count 6.5 K/mm3 (4.5-10.0)
[2019-11-25 09:46] LABS: Alanine Aminotransferase 185 U/L (4-35); Albumin Level 3.5 g/dL (3.5-5.1); Alkaline Phosphatase 220 U/L (38-126); Aspartate Amino Transferase 94 U/L (14-36); Bilirubin,Total 2.2 mg/dL (0.2-1.3); Blood Urea Nitrogen 10 mg/dL (7-17); Calcium 8.3 mg/dL (8.4-10.2); Carbon Dioxide 27 mmol/L (22-30); Chloride 105 mmol/L (98-107); Estimated CRCL calculation 76 ml/min; Estimated Glomerular Filt Rate > 60; Glucose 93 mg/dL (65-105); Potassium 3.6 mmol/L (3.4-5.0); Sodium 139 mmol/L (137-145)
[2019-11-25 10:20] LABS: Lipase 13645 U/L (23-300)
[2019-11-25 14:00] VITALS: BP 133/72; PULSE 60; RESP 16; TEMP 36.5; O2SAT 96
[2019-11-25 22:00] VITALS: BP 131/71; PULSE 67; RESP 16; TEMP 36.2; O2SAT 96
[2019-11-26 06:00] VITALS: BP 141/77; PULSE 79; RESP 16; TEMP 36.3; O2SAT 98
[2019-11-26] MEDS: FAMOTIDINE 20 MG/2 ML VIAL IV PUSH (08:01)
[2019-11-26 08:12] LABS: Hematocrit 31.2 % (37.0-47.0); Mean Corpuscular HGB Conc 32.1 g/dl (32-36); Mean Corpuscular Hemoglobin 25.6 pg (26-34); Mean Corpuscular Volume 79.8 fl (80-100); Mean Platelet Volume 11.1 fl (7.4-10.4); Platelet Count Result 210 k/mm3 (150-375); Red Blood Count 3.91 M/mm3 (4.2-5.4); Red Cell Distribution Width 16.3 % (11.5-14.5); White Blood Count 4.4 K/mm3 (4.5-10.0)
[2019-11-26 08:24] LABS: Alanine Aminotransferase 149 U/L (4-35); Albumin Level 3.2 g/dL (3.5-5.1); Alkaline Phosphatase 321 U/L (38-126); Aspartate Amino Transferase 92 U/L (14-36); Bilirubin,Total 3.6 mg/dL (0.2-1.3); Blood Urea Nitrogen 7 mg/dL (7-17); Calcium 8.3 mg/dL (8.4-10.2); Carbon Dioxide 24 mmol/L (22-30); Chloride 104 mmol/L (98-107); Estimated CRCL calculation 96 ml/min; Estimated Glomerular Filt Rate > 60; Glucose 82 mg/dL (65-105); Lipase 1878 U/L (23-300); Potassium 3.5 mmol/L (3.4-5.0); Sodium 135 mmol/L (137-145)
--- NOTE | 2019-11-26 08:37 | WPDGIPROGNO ---
Progress Note: A&P Additional Plan Patient alert more comfortable this morning. She remains afebrile. HEENT exam reveals mild icterus. Lungs are clear. Heart without murmur. Abdomen is soft balling head tender in the right upper quadrant. No organomegaly noted. Labs reveal a lipase elevated. Yesterday 13,000 today 1800. Impression 1. Post ERCP pancreatitis. Pain improving slowly. Now on liquid diet will not advanced diet too quickly given the circumstances. Continue with pain control as per surgical service. 2. Status post lap choly. 3. 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 Patient had ERCP and sphincterotomy Wednesday. Continue to monitor LFTs. anticipate eventual resolution of LFTs Subjective Date/time seen: 11/26/19 08:37 Objective Data Vital Signs Vital Signs: Vital Signs - 24 hr 11/25/19 14:00 11/25/19 22:00 11/26/19 06:00 Temperature 97.7 F 97.2 F L 97.4 F L Pulse Rate 60 67 79 Respiratory Rate 16 16 16 Blood Pressure 133/72 131/71 141/77 H Pulse Oximetry 96 96 98 Intake/Output Intake/Output: Intake & Output 11/23/19 11/24/19 11/25/19 11/26/19 23:59 23:59 23:59 23:59 Intake Total 2690 2050 1740 660 Output Total 1900 4030 467 0704 Balance 790 1050 890 -540 Meds/Results Medications: Active Medications Generic Name Dose Route Start Last Admin Trade Name Freq PRN Reason Stop Dose Admin Acetaminophen 500 mg 11/22/19 18:10 Tylenol Tablet PO Q6H PRN Mild Pain (1-3) or Fever Hydrocodone Bitart/Acetaminophen 1 tab 11/23/19 19:31 [place] 5-325 Mg PO Q4H PRN Pain Rated 4-6 Hydrocodone Bitart/Acetaminophen 1 tab 11/23/19 19:31 11/26/19 05:28 [place] 10-325 Mg PO 1 tab Q4H PRN Administration Pain Rated 7-10 Famotidine 20 mg 11/22/19 21:00 11/26/19 08:01 Pepcid Iv IV PUSH 20 mg Q12HR ELIJAH Administration Piperacillin/Tazobactam/Dextrose 3.375 gm in 50 mls @ 100 mls/hr 11/22/19 23:00 11/26/19 05:58 Zosyn 3.375 Gm/D5w 50ml Pm IVPB Infused Q6H ELIJAH Infusion Lactated Ringer's 1,000 mls @ 80 mls/hr 11/23/19 19:31 11/25/19 21:10 Lr - Lactated Ringers Iv IV CONT 80 mls/hr .[id number] ELIJAH Administration Morphine Sulfate 2 mg 11/22/19 18:10 11/24/19 08:34 Morphine Sulfate Inj IV PUSH 2 mg Q2H PRN Administration Pain Rated 4-6 Morphine Sulfate 4 mg 11/22/19 18:10 11/25/19 21:11 Morphine Sulfate Inj IV PUSH 4 mg Q2H PRN Administration Pain Rated 7-10 Naloxone HCl 0.1 mg 11/22/19 18:10 Narcan IV PUSH Q2M PRN Opiate Reversal Ondansetron HCl 4 mg 11/22/19 16:48 11/25/19 12:17 Zofran Inj IV PUSH 4 mg Q4H PRN Administration Nausea Radiology Results: ITS Impressions Abdomen/Pelvis CT 11/22/19 13:31 IMPRESSION: Mild gallbladder wall thickening Consider ultrasound of the gallbladder Mild bile duct dilatation; consider serum bilirubin, MRCP as appropriate Upper Quadrant Ultrasound 11/22/19 14:45 IMPRESSION: Cholelithiasis, gallbladder wall thickening. Acute cholecystitis is not excluded. Common bile duct dilatation, measuring up to 8 mm. Upon correlation with the 11/22/2019 CT abdomen pelvis examination, distal common bile duct obstruction secondary to choledocholithiasis is a strong consideration. Cholangiogram,Operative 11/23/19 12:14 IMPRESSION: 1. Dilation of the common bile duct proximal to a likely obstructing stone at the ampulla. Dr. Cortés in the OR was notified of these findings at the time of imaging. Endo Retro Cholangiopancreatogram 11/24/19 20:28 IMPRESSION: 1. Dilated common duct. Please refer to the ERCP procedure note for additional details. Labs Labs: Laboratory Results - last 24 hr 11/25/19 11/25/19 11/26/19 09:09 09:09 08:06 WBC 6.5 4.4 L RBC 4.17 L 3.91 L Hgb 10.8 L 10.0 L Hct 34.1 L 31.2 L MCV 81.8 79.8 L MCH 25.9 L 25.6 L MCHC 31.7 L 32.1 RDW 16.2 H 16.3 H Plt Count 248 210 MPV 1
--- NOTE | 2019-11-26 11:24 | PM.PNGS ---
Progress Note: A&P Assessment and Plan (1) Acute pancreatitis after endoscopic retrograde cholangiopancreatography (ERCP): Code(s): K91.89 - Other postprocedural complications and disorders of digestive system; K85.90 - Acute pancreatitis without necrosis or infection, unspecified Status: Acute Assessment and Plan: improving but patient still nauseated, eating only fair and very tender in the epigastrium. Will advance to low-fat diet but continue hospital care for another day. Hopefully home tomorrow. (2) Choledocholithiasis with acute cholecystitis: Code(s): K80.42 - Calculus of bile duct with acute cholecystitis without obstruction Status: Acute Assessment and Plan: See above. Will stop Zosyn antibiotics. Subjective Subjective Date/Time Seen: 11/26/19 11:24 Post Op day: 3 Patient reports: feels better, still having pain, pain is less, tolerating liquids well and nausea Review of Systems Review of Systems: All systems reviewed & are unremarkable except as noted in HPI and below Constitutional: Constitutional: Denies headache(s) Cardiovascular: Cardiovascular: Denies chest pain and Denies dyspnea Respiratory: Respiratory: Denies cough and Denies dyspnea Gastrointestinal: Gastrointestinal: Reports as per HPI Neurologic: Denies confusion and Denies headache(s) Exam Const: General: comfortable and no acute distress; No confusion Orientation/consciousness: patient oriented x3 and No confusion GI: Inspection: non-distended and incision ( healing well) GI Palp: Yes Soft to palpation, Yes Tenderness to palpation present (GI) ( still very tender epigastrium and right upper quadrant), No Guarding due to palpation present (GI), No Palpable mass present and No Rebound tenderness present Auscultation: Hypoactive bowel sounds present Neuro: General: patient oriented x3, no focal motor deficits and No confusion Extrem: General: no calf tenderness and no edema Psych: Affect: normal affect Insight: Good insight present (Psych) Judgement: Good judgement present (Psych) Objective Data Vital Signs Vital Signs: Vital Signs - 24 hr 11/25/19 14:00 11/25/19 22:00 11/26/19 06:00 Temperature 36.5 C 36.2 C L 36.3 C L Pulse Rate 60 67 79 Respiratory Rate 16 16 16 Blood Pressure 133/72 131/71 141/77 H Pulse Oximetry 96 96 98 Intake/Output Intake/Output: Intake & Output 11/23/19 11/24/19 11/25/19 11/26/19 23:59 23:59 23:59 23:59 Intake Total 2690 2050 1740 690 Output Total 1900 5463 477 1544 Balance 790 1050 890 -510 Meds/Results Medications: Active Medications Generic Name Dose Route Start Last Admin Trade Name Freq PRN Reason Stop Dose Admin Acetaminophen 500 mg 11/22/19 18:10 Tylenol Tablet PO Q6H PRN Mild Pain (1-3) or Fever Hydrocodone Bitart/Acetaminophen 1 tab 11/23/19 19:31 [place] 5-325 Mg PO Q4H PRN Pain Rated 4-6 Hydrocodone Bitart/Acetaminophen 1 tab 11/23/19 19:31 11/26/19 05:28 [place] 10-325 Mg PO 1 tab Q4H PRN Administration Pain Rated 7-10 Morphine Sulfate 2 mg 11/22/19 18:10 11/24/19 08:34 Morphine Sulfate Inj IV PUSH 2 mg Q2H PRN Administration Pain Rated 4-6 Morphine Sulfate 4 mg 11/22/19 18:10 11/25/19 21:11 Morphine Sulfate Inj IV PUSH 4 mg Q2H PRN Administration Pain Rated 7-10 Naloxone HCl 0.1 mg 11/22/19 18:10 Narcan IV PUSH Q2M PRN Opiate Reversal Ondansetron HCl 4 mg 11/22/19 16:48 11/25/19 12:17 Zofran Inj IV PUSH 4 mg Q4H PRN Administration Nausea Radiology Results: ITS Impressions Abdomen/Pelvis CT 11/22/19 13:31 IMPRESSION: Mild gallbladder wall thickening Consider ultrasound of the gallbladder Mild bile duct dilatation; consider serum bilirubin, MRCP as appropriate Upper Quadrant Ultrasound 11/22/19 14:45 IMPRESSION: Cholelithiasis, gallbladder wall thickening. Acute cholecystitis is not excluded
[2019-11-26 14:00] VITALS: BP 115/66; PULSE 78; RESP 16; TEMP 36.1; O2SAT 99
[2019-11-26] MEDS: FAMOTIDINE 20 MG TABLET PO (20:17)
[2019-11-26 22:00] VITALS: BP 127/71; PULSE 78; RESP 18; TEMP 36.5; O2SAT 100
[2019-11-27 06:22] LABS: Hematocrit 33.3 % (37.0-47.0); Hemoglobin 10.6 g/dL (12.0-15.0); Mean Corpuscular HGB Conc 31.8 g/dl (32-36); Mean Corpuscular Hemoglobin 25.7 pg (26-34); Mean Corpuscular Volume 80.8 fl (80-100); Mean Platelet Volume 11.9 fl (7.4-10.4); Platelet Count Result 268 k/mm3 (150-375); Red Blood Count 4.12 M/mm3 (4.2-5.4); White Blood Count 5.8 K/mm3 (4.5-10.0)
[2019-11-27 06:36] LABS: Alanine Aminotransferase 113 U/L (4-35); Albumin Level 3.2 g/dL (3.5-5.1); Alkaline Phosphatase 294 U/L (38-126); Aspartate Amino Transferase 44 U/L (14-36); Blood Urea Nitrogen 8 mg/dL (7-17); Calcium 8.5 mg/dL (8.4-10.2); Carbon Dioxide 27 mmol/L (22-30); Chloride 104 mmol/L (98-107); Estimated CRCL calculation 96 ml/min; Estimated Glomerular Filt Rate > 60; Glucose 97 mg/dL (65-105); Lipase 457 U/L (23-300); Potassium 3.6 mmol/L (3.4-5.0); Sodium 137 mmol/L (137-145)
[2019-11-27 06:57] VITALS: BP 144/94; PULSE 63; RESP 18; TEMP 36.9; O2SAT 97
--- NOTE | 2019-11-27 10:24 | WPDGIPROGNO ---
Progress Note: A&P Assessment and Plan (1) Acute pancreatitis after endoscopic retrograde cholangiopancreatography (ERCP): Code(s): K91.89 - Other postprocedural complications and disorders of digestive system; K85.90 - Acute pancreatitis without necrosis or infection, unspecified Status: Acute Assessment and Plan: bilirubin today is normal and liver enzymes trending down had mild pancreatitis post ercp (she received indomethacin supp prior ercp and PD was not cannulated) she is doing better now, advance to low fat and have small portions she can go home today (2) Choledocholithiasis with acute cholecystitis: Code(s): K80.42 - Calculus of bile duct with acute cholecystitis without obstruction Status: Acute Assessment and Plan: treated with lap armand then ercp (bile duct with good flow after sweeping without filling defect) (3) Elevated liver enzymes: Code(s): R74.8 - Abnormal levels of other serum enzymes Status: Acute (4) Duodenal papillary stenosis: Code(s): K31.5 - Obstruction of duodenum Status: Acute Assessment and Plan: treated with sphincterotomy (5) Lactating mother: Code(s): Z39.1 - Encounter for care and examination of lactating mother Status: Chronic Subjective Date/time seen: 11/27/19 10:24 Interval history: pain is almost gone and tolerated breakfast today without any more nausea. She feels like going home today Review of Systems Review of Systems: All systems reviewed & are unremarkable except as noted in HPI and below Exam Const: General: comfortable and no acute distress HENMT: General nose exam: Normal nares present Eyes: General: appearance normal, both eyes and all related structures Neck: Neck: no JVD Resp: Auscultation: clear to auscultation bilaterally Cardio: Rate: regular rate Rhythm: regular rhythm GI: Inspection: non-distended and scar (lap armand healing ok) GI Palp: Yes Soft to palpation Auscultation: normal bowel sounds Skin: General skin exam: normal color Neuro: General: gait normal Speech: normal speech Extrem: General: normal to inspection Psych: Mental Status: mental status grossly normal Objective Data Vital Signs Vital Signs: Vital Signs - 24 hr 11/26/19 14:00 11/26/19 22:00 11/27/19 06:57 Temperature 96.9 F L 97.7 F 98.4 F Pulse Rate 78 78 63 Respiratory Rate 16 18 18 Blood Pressure 115/66 127/71 144/94 H Pulse Oximetry 99 100 97 Intake/Output Intake/Output: Intake & Output 11/24/19 11/25/19 11/26/19 11/27/19 23:59 23:59 23:59 23:59 Intake Total 2050 1740 1180 186 Output Total 3406 261 2751 900 Balance 1050 735 -182 -981 Meds/Results Medications: Active Medications Generic Name Dose Route Start Last Admin Trade Name Freq PRN Reason Stop Dose Admin Acetaminophen 500 mg 11/22/19 18:10 Tylenol Tablet PO Q6H PRN Mild Pain (1-3) or Fever Hydrocodone Bitart/Acetaminophen 1 tab 11/23/19 19:31 11/27/19 02:01 [place] 5-325 Mg PO 1 tab Q4H PRN Administration Pain Rated 4-6 Hydrocodone Bitart/Acetaminophen 1 tab 11/23/19 19:31 11/27/19 06:03 [place] 10-325 Mg PO 1 tab Q4H PRN Administration Pain Rated 7-10 Famotidine 20 mg 11/26/19 21:00 11/26/19 20:17 Pepcid PO 20 mg Q12HR ELIJAH Administration Morphine Sulfate 2 mg 11/22/19 18:10 11/24/19 08:34 Morphine Sulfate Inj IV PUSH 2 mg Q2H PRN Administration Pain Rated 4-6 Morphine Sulfate 4 mg 11/22/19 18:10 11/25/19 21:11 Morphine Sulfate Inj IV PUSH 4 mg Q2H PRN Administration Pain Rated 7-10 Naloxone HCl 0.1 mg 11/22/19 18:10 Narcan IV PUSH Q2M PRN Opiate Reversal Ondansetron HCl 4 mg 11/22/19 16:48 11/25/19 12:17 Zofran Inj IV PUSH 4 mg Q4H PRN Administration Nausea Radiology Results: ITS Impressions Abdomen/Pelvis CT 11/22/19 13:31 IMPRESSION: Mild gallbladder wall thickening
--- NOTE | 2019-12-04 12:59 | PM.PROC ---
Procedure Note - Detailed Date of procedure: 11/23/19 Pre-op diagnosis: acute cholecystitis, abn LFT's Acute cholecystitis with gallstones, abnormal liver function tests. Post-op diagnosis: other ( Choledocholithiasis with acute cholecystitis with distal common bile duct obstruction) Procedure performed: Laparoscopic cholecystectomy with intraoperative cholangiogram. Description of procedure: The patient was taken to surgery and induced into general anesthesia. The abdomen was prepped and draped. Trocars were placed in the usual fashion using 0.5% Marcaine with epinephrine and applied Medical optical trocars. A 5 millimeter camera was used. The gallbladder was quite distended and edematous consistent with acute inflammation and cholecystitis.The gallbladder was decompressed with a laparoscopic aspirator. The cholecystotomy was closed with a Vicryl endo-loop. The infundibulum of the gallbladder was exposed. It was retracted anterosuperiorly. We exposed the cholecystohepatic triangle and dissected out the cystic duct and cystic artery. The dissection was difficult as the acute inflammation made it hypervascular and tissue planes were obscured. The gallbladder was dissected off the liver at its lower 3rd. Critical view was achieved. The cystic artery was securely clipped and divided. Cystic duct was dissected through most of its length. The cystic duct was clipped at the distal gallbladder. A small incision was made in the upper cystic duct with cystic duct scissors. The cholangiogram catheter was passed into the cystic duct. We then brought the C-arm fluoroscopy into the field. Intraoperative cholangiograms were done with C-arm fluoroscopy. The cholangiogram showed a dilated intrahepatic and extrahepatic biliary system with evidence of a small dil filling defect in the distal common bile duct consistent with a stone. There was minimal duodenal filling. I discussed the results with the radiologist over the phone. He agreed there was a distal common bile duct filling defect consistent with a stone. The cholangiogram catheter was removed from the cystic duct. The cystic duct was then securely clipped and divided. The gallbladder was then dissected free of its peritoneal attachments to the liver. Once completely freed, it was placed in an Endo-Catch bag and retrieved through the 10 11 epigastric trocar. The epigastric trocar was then replaced. We reviewed the right upper quadrant and gallbladder fossa. It was irrigated and suctioned. Cautery was used for hemostasis. All looked good with no evidence of bleeding or bile leakage. We then evacuated CO2 and removed the trocar sleeves. All skin wounds were closed with subcuticular 4 O Monocryl skin suture. The wounds were dressed with Exofin surgical adhesive. The patient transferred to recovery in good condition. Sponge and needle counts were correct x2. Anesthesia: GETA and local (0.5% Marcaine with epinephrine) Surgeon: Eduard Cortés MD Estimated blood loss (mL): 30 Drains: No Packing: No Pathology: yes (Gallbladder) Complications: None Condition: stable Disposition: PACU Findings: Acute cholecystitis with inflammation, hypervascularity, and edema. Biliary ducts were dilated. Intraoperative cholangiogram showed dilated bile ducts with a distal common bile duct stone. No liver abnormalities.
== END 2019-11-27 11:45 | disposition home or self-care (01) | DRG 951 ==
LOC: ANHED 16:56 → ANH3MEDSUR 18:49
PROVIDERS: Internal Medicine Gastroenterology; Admitting Provider Surgery; Emergency Provider Nurse Practitioner Family; Visit Provider Surgery
PROC: 0FT44ZZ Resection of Gallbladder, Percutaneous Endoscopic Approach (ICD-10-PCS; CPT 47562; principal; 2019-11-23 10:30)
PROC: 0F798ZZ Dilation of Common Bile Duct, Via Natural or Artificial Opening Endoscopic (ICD-10-PCS; CPT 43260; principal; 2019-11-24 13:30)
DX: O99.63 Diseases of the digestive system complicating the puerperium (principal); K80.42 Calculus of bile duct with acute cholecystitis without obstruction; K91.89 Other postprocedural complications and disorders of digestive system; K85.90 Acute pancreatitis without necrosis or infection, unspecified
CPT/HCPCS: 36415; 74177; 74300; 74329; 76705; 80053; 81001; 81025; 82248; 83605; 83690; 85025; 85027; 85610; 85730; 86850; 86880; 86900; 86901; 86922; 87086; 88304; 93005; 96361; 96365; 96367; 96372; 96375; 96376; 99285; A9270; C1713; G0378; G0379; J0330; J1100; J1650; J1741; J2250; J2270; J2405; J2543; J2704; J3010; J7030; J7120; Q9966; Q9967

== ENCOUNTER 2020-10-16 10:19 | Outpatient (CLI) | payer OTHER, SELFPAY ==
[2020-10-16 10:51] LABS: Basophils Absolute Auto 0.01 K/mm3 (0.00-0.10); Basophils Percent Auto 0.1 % (0.0-1.0); Eosinophils Absolute Auto 0.09 K/mm3 (0.02-0.50); Eosinophils Percent Auto 0.9 % (1.0-6.0); Hematocrit 34.8 % (35.0-49.0); Hemoglobin 11.5 g/dL (12.0-15.0); Immature Granulocyte Absolute 0.05 K/mm3 (0.00-0.00); Immature Granulocyte Percent A 0.5 % (0.0-0.0); Lymphocytes Absolute Auto 1.82 K/mm3 (1.10-4.50); Lymphocytes Percent Auto 18.6 % (18.0-42.0); Mean Corpuscular Hemoglobin 27.3 pg (27.0-31.0); Mean Corpuscular Volume 82.7 fL (78.0-102.0); Mean Platelet Volume 11.4 fl (9.2-11.8); Monocytes Absolute Auto 0.44 K/mm3 (0.10-0.90); Monocytes Percent Auto 4.5 % (2.0-11.0); Neutrophils Absolute Auto 7.4 K/mm3 (1.7-7.2); Neutrophils Percent Auto 75.4 % (50.0-70.0); Platelet Count Result 178 K/mm3 (150-420); Red Blood Count 4.21 M/mm3 (4.20-5.40); Red Cell Distribution Width 13.2 % (11.6-14.4); White Blood Count 9.8 K/mm3 (4.8-10.8)
[2020-10-16 11:02] LABS: Glucose Fasting 96 mg/dL (70-99)
[2020-10-16 11:47] LABS: Glucose 1 Hour 179 mg/dL (<180)
[2020-10-16 12:56] LABS: Glucose 2 Hour 137 mg/dL (<155)
[2020-10-16 13:12] LABS: HIV 1 P24 AG Negative (Negative); HIV 1/2 AB Negative (Negative)
[2020-10-16 13:51] LABS: Glucose 3 Hour 113 mg/dL (<140)
[2020-10-18 19:08] LABS: Rubella IgG Antibody 1.12 Index
[2020-10-18 22:01] LABS: Hepatitis B Surface Antigen Nonreactive (Nonreactive)
[2020-10-20 14:12] LABS: RPR Screen Non-Reactive (Non-Reactive)
== END 2020-10-16 10:20 | disposition home or self-care (01) ==
LOC: CHSLAB 10:23
PROVIDERS: PCP Internal Medicine; Visit Provider Advanced Practice Midwife
DX: Z36.9 Encounter for antenatal screening, unspecified (principal); O99.810 Abnormal glucose complicating pregnancy
CPT/HCPCS: 36415; 82951; 82952; 85025; 86592; 86703; 86762; 86850; 86900; 86901

== ENCOUNTER 2020-11-06 14:39 | Outpatient (CLI) | payer OTHER, SELFPAY ==
[2020-11-09 16:25] LABS: Rubella IgG Antibody 1.07 Index
[2020-11-09 18:34] LABS: CMV IgM Antibody <30.00 AU/mL (<30.00)
[2020-11-10 17:52] LABS: Toxoplasma IgG Antibody <7.20 IU/mL (<7.20)
[2020-11-12 12:38] LABS: HSV 1 IgM Screen Negative (Negative); HSV 2 IgM Screen Negative (Negative)
[2020-11-18 17:42] LABS: CF Result NEGATIVE (NEGATIVE); Ethnicity NG
== END 2020-11-06 14:40 | disposition home or self-care (01) ==
LOC: CHSLAB 14:42
PROVIDERS: PCP Internal Medicine; Visit Provider Obstetrics & Gynecology
DX: Z36.9 Encounter for antenatal screening, unspecified (principal); O35.9XX0 Maternal care for (suspected) fetal abnormality and damage, unspecified, not applicable or unspecified
CPT/HCPCS: 36415; 81220; 85461; 86644; 86645; 86695; 86696; 86762; 86777; 90384; J2790

== ENCOUNTER → 2023-03-05 11:45 | Outpatient (CLI) | payer BC, SELFPAY ==
--- NOTE | ~2023-03-05 | US_ITS ---
EXAMINATION: US OB /maternal detail DATE: 03/05/2023 12:25 INDICATION: Second trimester anatomic survey TECHNIQUE: Real-time ultrasound of the pelvis was performed. COMPARISON: None. FINDINGS: There is a single living fetus in vertex presentation. The placenta is posterior and 7.9 cm from the internal cervical os. The measured cervical length is 3.1 cm. heart rate is 155 beats per minut e (bpm). cardiac activity and movement are noted. The amniotic fluid index is subjective ly normal. The kidneys are not well demonstrated. The following anatomy was identified as normal: 4 chamber heart 3 vessel cord cord insertion urinary bladder stomach spine diaphragm ventricles cisterna magna cerebellum The following biometric data were obtained: Biparietal diameter (BPD): 5.3 cm; head circumference (HC): 19.7 cm; abdominal circumference (AC): 16 .6 cm; femur length (FL): 3.5 cm. These measurements are concordant. Estimated weight is 420 g +/- 63 g, which correlates with the 10th percentile when 07/07/2023 is used as estimated date of delivery. As single measurements, these parameters are each equal to the following estimated gestational ages w ith ranges of +/- 2 standard deviations: BPD: 22 weeks 0 days ( 20 weeks 2 days - 23 weeks 5 days). HC: 21 weeks 6 days ( 20 weeks 3 days - 23 weeks 3 days). AC: 21 weeks 4 days ( 19 weeks 4 days - 23 weeks 5 days). FL: 21 weeks 0 days ( 19 weeks 1 days - 22 weeks 5 days). estimated gestational age based solely on measurements from this exam is 21 weeks 4 days +/- 1 weeks 4 days. IMPRESSION: 1. Single living fetus in vertex presentation. 2. Estimated weight is 420 g +/- 63 g, which correlates with the 10th percentile when 07/07/2023 is used as estimated date of delivery. 3. Kidneys not well demonstrated. Reviewed, dictated and finalized at location F. IMPRESSION: 1. Single living fetus in vertex presentation. 2. Estimated weight is 420 g +/- 63 g, which correlates with the 10th per centile when 07/07/2023 is used as estimated date of delivery. 3. Kidneys not well demonstrated.
== END ==
PROVIDERS: PCP Advanced Practice Midwife; Visit Provider Advanced Practice Midwife
DX: Z36.89 Encounter for other specified antenatal screening (principal)
CPT/HCPCS: 76805

== ENCOUNTER → 2023-04-19 09:45 | Outpatient (CLI) | payer BC, SELFPAY ==
--- NOTE | ~2023-04-19 | US_ITS ---
EXAMINATION: US OB follow up DATE: 04/19/2023 10:15 INDICATION: screening encounter. TECHNIQUE: Real-time ultrasound of the pelvis was performed. COMPARISON: Ultrasound 03/05/2023 FINDINGS: There is a single living fetus in vertex presentation. The placenta is posterior, 8.1 cm from the ce rvix. heart rate is 159 beats per minute (bpm). The kidneys are normal. The amniotic fluid inde x is 15.6 cm, which is normal. The cervical length is 3.6 cm on transabdominal images, which is emma l. The following biometric data were obtained: Biparietal diameter (BPD): 7.2 cm; head circumference (HC): 26.8 cm; abdominal circumference (AC): 24 .4 cm; femur length (FL): 5.4 cm. These measurements are concordant. Estimated weight is 1267 g +/- 190 g, which correlates with the 36th percentile when 07/07/23 is used as estimated date of delivery. As single measurements, these parameters are each equal to the following estimated gestational ages: BPD: 28 weeks 5 days. HC: 29 weeks 2 days. AC: 28 weeks 5 days. FL: 28 weeks 4 days. estimated gestational age based solely on measurements from this exam is 28 weeks 6 days +/- 2 weeks 0 days. IMPRESSION: 1. Single living fetus in vertex presentation. 2. Estimated weight is 1267 g +/- 190 g, which correlates with the 36th percentile when 4 is used as estimated date of delivery. 3. Normal kidneys. Reviewed, dictated and finalized at location A. [employer] IMPRESSION: 1. Single living fetus in vertex presentation. 2. Estimated weight is 1267 g +/- 190 g, which correlates with the 36th percentile when 07/07/23 is used as estimated date of delivery. 3. Normal kidneys.
== END ==
PROVIDERS: PCP Obstetrics & Gynecology
DX: O99.210 Obesity complicating pregnancy, unspecified trimester (principal)
CPT/HCPCS: 76816